=== PATIENT | male | born 1955 | race Two or more races ===

== ENCOUNTER 2019-12-14 07:16 | Inpatient (IN) | payer MEDICAID ==
[~2019-12-14] VITALS: Ht 170.2 cm; Wt 74.3 kg
[~2019-12-14 07:16] MED LIST: ALPR0.5T PO; BACITRACIN INJ 50000 UNIT VIAL ONE; BUPIVACAINE 0.25% INJ 50ML VIAL ONE; LIDOCAINE W/ EPINEPHRINE 1 % INJ 30ML ONE; LISI-646 PO; METO-158 PO; TAMS0.4C36 PO
[2019-12-14] MEDS ORDERED: HEPARIN SODIUM (PORCINE) 5000 UNITS/ML 1ML VIAL ONE (07:52)
[2019-12-14] MEDS: hydrALAZINE HCL 20 MG/ML VL ONE ×2 (08:26→08:30)
[2019-12-14] MEDS ORDERED: MORPHINE SULF INJ 2 MG/ML SYRINGE 1ML IV PRN (10:00)
[2019-12-14] MEDS ORDERED: NITROGLYCERIN 0.4 MG SL TAB SL PRN (10:00)
[2019-12-14] MEDS ORDERED: amLODIPine BESYLATE 5 MG TAB PO ONE (13:45)
[2019-12-14] MEDS ORDERED: ALPRAZolam 0.5 MG TAB PO PRN (13:45)
[2019-12-14] MEDS ORDERED: hydrALAZINE HCL 20 MG/ML VL IV PRN (13:45)
[2019-12-14] MEDS ORDERED: ACETAMINOPHEN 325 MG TAB PO PRN ×2 (13:45→15:30)
[2019-12-14 13:57] LABS: Basophils # (auto) 0 10 ^3/uL (0-0.2); Basophils % (auto) 0.7 % (0.0-2.0); Eosinophils # (auto) 0.1 10 ^3/uL (0-0.8); Eosinophils % (auto) 2.1 % (0.0-7.0); Hematocrit 45.8 % (41.0-53.0); Hemoglobin 15.1 g/dL (13.5-17.5); Lymphocytes # (auto) 1.6 10 ^3/uL (0.4-5.4); Lymphocytes % (auto) 26.3 % (10.0-50.0); Mean Corpuscular Hemoglobin 29.9 pg (28.0-32.0); Mean Corpuscular Volume 90.6 fL (80.0-100.0); Monocytes # (auto) 0.4 10 ^3/uL (0-1.3); Neutrophils # (auto) 3.8 10 ^3/uL (1.6-8.6); Neutrophils % (auto) 63.9 % (37.0-80.0); Nucleated Red Blood Cells % 0.2 %; Platelet Count (auto) 152 10^3/uL (140-450); Red Blood Cells 5.05 10^6/uL (4.5-5.90); Red Cell Distribution Width 12.8 % (11.8-14.3); White Blood Cell 5.9 10^3/uL (4.4-10.8)
[2019-12-14] MEDS: hydrALAZINE HCL 25 MG TAB PO SCH ×2 (14:18→23:55)
[2019-12-14 14:25] LABS: BUN/Creatinine Ratio 16.3; Calcium 9.4 mg/dL (8.5-10.1)
[2019-12-14] MEDS ORDERED: HYDROcodone-ACET 5/325MG TAB PO PRN (15:30)
[2019-12-14] MEDS ORDERED: PROMETHAZINE HCL 25 MG/ML 1ML IV PRN (15:30)
--- NOTE | 2019-12-14 16:40 | NUR ---
Telemetry admit from PACU LORETTA NAQVI admitted to Telemetry unit after SBAR received. Patient oriented to kassi PRITCHETT RN, unit, room, bed, and unit policies regarding patient care and visiting hours. Patient now on continuous telemetry monitoring, tele box #75 and telemetry reading on arrival to unit is SINUS RHYTHM 62BPM. Patient weighed by bedscale and encouraged to call if they need something. All questions and concerns addressed, patient verbalized understanding.
[2019-12-14 16:53] VITALS: BP 153/96
[2019-12-14 17:00] VITALS: BP 153/96
[2019-12-14] MEDS ORDERED: TAMSULOSIN HYDROCHLORIDE 0.4 MG CAP PO SCH (18:00)
--- NOTE | 2019-12-14 19:30 | NUR ---
RECEIVED PATIENT FROM DAY SHIFT RN. PATIENT RESTING IN BED. NO S/S OF DISTRESS NOTED. DENIED PAIN FOR NOW. REINFORCED NPO AFTER MIDNIGHT FOR POSSIBLE PROCEDURE TOMORROW PER MD COMMUNICATION ORDER. POC INSTRUCTED AND ENCOURAGED PATIENT TO CALL FOR FLASH DEVELOPER IF NEEDED. BED IN LOWEST POSITION WITH SIDE RAILS UP X 2. CALL PICHARDO WITHIN REACH. ALARM ON. CONTINUE TO MONITOR FOR CHANGES Q1H AND PRN.
[2019-12-14] MEDS: METOPROLOL TARTRATE 25 MG TAB PO SCH (21:18)
--- NOTE | 2019-12-14 21:29 | NUR ---
PATIENT C/O HEADACHE @ 01/16 AND REQUESTED TYLENOL, BP 155/99, MEDICATED PATIENT FOR HEADACHE AND BP ORDERED. CONTINUE TO MONITOR.
[2019-12-14 22:00] VITALS: BP 155/99
[2019-12-14] MEDS ORDERED: METOPROLOL TARTRATE 50 MG TAB PO SCH (22:00)
--- NOTE | 2019-12-14 22:25 | NUR ---
REASSESSED HEADACHE 0/10, BP 129/83. CONTINUE TO MONITOR.
--- NOTE | 2019-12-15 00:30 | NUR ---
NPO FROM NOW. WATER AND FOOD REMOVED FROM BEDSIDE. CONTINUE CARE.
--- NOTE | 2019-12-15 03:02 | NUR ---
PATIENT SLEEPING. NO S/S OF DISTRESS NOTED. CONTINUE CARE.
[2019-12-15 05:00] VITALS: BP 136/91
[2019-12-15] MEDS: hydrALAZINE HCL 25 MG TAB PO SCH ×2 (05:54→11:45)
--- NOTE | 2019-12-15 06:13 | NUR ---
PATIENT RESTING IN BED. NO S/S OF DISTRESS NOTED. REINFORCED NPO FOR NOW. CONTINUE CARE.
--- NOTE | 2019-12-15 07:25 | NUR ---
OPENING SHIFT NOTE ASSUMED CARE OF PATIENT FROM BAREBACK RIDER RN RADHIKA. PATIENT IS AWAKE, ALERT, AND ORIENTED X4. PATIENT HAS NO S/S OF DISTRESS/SOB OR PAIN. INSTRUCTED PATIENT ON POC, PATIENT VERBALIZED UNDERSTANDING. BED IS IN LOWEST POSITION WITH SIDE RAILS RAISED X2, BED WHEELS LOCKED, AND CALL LIGHT IS WITHIN REACH. WILL CONTINUE TO MONITOR.
[2019-12-15 07:39] LABS: Basophils # (auto) 0 10 ^3/uL (0-0.2); Basophils % (auto) 0.4 % (0.0-2.0); Eosinophils # (auto) 0.1 10 ^3/uL (0-0.8); Hematocrit 46.9 % (41.0-53.0); Hemoglobin 15.8 g/dL (13.5-17.5); Lymphocytes # (auto) 1.2 10 ^3/uL (0.4-5.4); Lymphocytes % (auto) 21.4 % (10.0-50.0); Mean Corpuscular Hemoglobin 30.3 pg (28.0-32.0); Mean Corpuscular Hgb Conc. 33.7 g/dL (32.0-36.0); Mean Corpuscular Volume 89.9 fL (80.0-100.0); Monocytes # (auto) 0.4 10 ^3/uL (0-1.3); Monocytes % (auto) 6.6 % (0.0-12.0); Neutrophils % (auto) 70.6 % (37.0-80.0); Nucleated Red Blood Cells % 0.2 %; Platelet Count (auto) 135 10^3/uL (140-450); Red Blood Cells 5.22 10^6/uL (4.5-5.90); Red Cell Distribution Width 12.8 % (11.8-14.3); White Blood Cell 5.7 10^3/uL (4.4-10.8)
[2019-12-15 07:59] LABS: Potassium 3.7 mmol/L (3.5-5.1)
[2019-12-15 08:13] LABS: Bilirubin, Total 0.5 mg/dL (0.2-1.0); Calcium 9.3 mg/dL (8.5-10.1); Total Protein 7.8 g/dL (6.4-8.2)
[2019-12-15] MEDS ORDERED: PANTOPRAZOLE 40 MG TAB PO SCH (10:00)
[2019-12-15] MEDS ORDERED: amLODIPine BESYLATE 5 MG TAB PO SCH (10:00)
[2019-12-15] MEDS ORDERED: LISINOPRIL 20 MG TAB PO SCH (10:00)
[2019-12-15] MEDS: METOPROLOL TARTRATE 25 MG TAB PO SCH (10:06)
--- NOTE | 2019-12-15 10:52 | NUR ---
SPOKE WITH PRE-OP RN RAYMUNDO. PER RAYMUNDO, PATIENT IS NOT ON SCHEDULE FOR SURGERY. LEFT MESSAGE WITH DR. ENRIQUE'S SERVICES. AWAITING CALL BACK.
--- NOTE | 2019-12-15 12:22 | NUR ---
SPOKE WITH DR. WHITE. PER , HE IS NOT GOING TO DO SURGERY DUE TO HYPERTENSION AND HE HAS CLEARED PATIENT TO BE DISCHARGED AND HE WILL DO THE ELECTIVE SURGERY OUTPATIENT.
--- NOTE | 2019-12-15 12:27 | NUR ---
FOOD TRAY GIVEN TO PATIENT.
[2019-12-15] MEDS ORDERED: hydrALAZINE HCL 25 MG TAB PO ONE (13:00)
--- NOTE | 2019-12-15 13:00 | NUR ---
SPOKE WITH DR. ENRIQUE AND INFORMED MD PATIENT IS CLEARED FOR DISCHARGE BY DR. CINDY MD IS AWARE AND ORDERED HYDRALAZINE TO BE GIVEN TO PATIENT BEFORE DISCHARGE. WILL FOLLOW THROUGH WITH ORDERS.
[2019-12-15] MEDS ORDERED: AML5T PO (13:08)
[2019-12-15] MEDS ORDERED: HYDR-2691 PO (13:08)
[2019-12-15] MEDS ORDERED: MET25T PO (13:08)
[2019-12-15 14:16] VITALS: BP 140/89
--- NOTE | 2019-12-15 15:07 | NUR ---
Discharge instructions given as ordered. Encourage to follow up with PMD as instructed. All questions and concerns addressed. Patient verbalized understanding. Medication reconciliation form completed and copy given to patient. IV removed with catheter intact, pressure dressing applied. Telemetry unit returned to ICU. Patient ambulated to [facility] with all personal belongings, accompanied by staff. No distress noted at time of departure.
[2019-12-15] MEDS ORDERED: hydrALAZINE HCL 25 MG TAB PO SCH (18:00)
== END 2019-12-15 15:00 | disposition home or self-care (01) | DRG 199 ==
LOC: SUR 07:16 → TELE-WESTW 16:49
PROVIDERS: ADMIT Specialist; ATTEND Surgery
DX: I16.9 Hypertensive crisis, unspecified (principal); K40.90 Unilateral inguinal hernia, without obstruction or gangrene, not specified as recurrent; N40.0 Benign prostatic hyperplasia without lower urinary tract symptoms; F41.9 Anxiety disorder, unspecified; Z79.899 Other long term (current) drug therapy; Z83.3 Family history of diabetes mellitus; Z82.49 Family history of ischemic heart disease and other diseases of the circulatory system; Z82.5 Family history of asthma and other chronic lower respiratory diseases; Z11.59 Encounter for screening for other viral diseases; R00.1 Bradycardia, unspecified
CPT/HCPCS: 36415; 80048; 80053; 85025; G0378; J3490

== ENCOUNTER 2024-06-20 13:50 | Inpatient (IN) | payer OTHER, MEDICAID ==
[~2024-06-20] VITALS: Ht 170.2 cm; Wt 65.5 kg
[~2024-06-20 13:50] MED LIST changes: +AML5T PO; -BACITRACIN INJ 50000 UNIT VIAL ONE; -BUPIVACAINE 0.25% INJ 50ML VIAL ONE; +HYDR25TA87 PO; -LIDOCAINE W/ EPINEPHRINE 1 % INJ 30ML ONE; -LISI-646 PO; +LISI20TA56 PO; +MET25T PO; -METO-158 PO; -TAMS0.4C36 PO; +TAMS0.4C39 PO
--- NOTE | 2024-06-20 14:02 | ED.PDOC ---
History of Present Illness HPI Comments 69 y.o male with PMHx of HTN and preDM presents to the ED for a chief complaint of dizziness associated with generalized malaise and weakness that started today. Patient was BIB spouse who states patient has a history of ETOH abuse, drinks Tequila everyday and consumed a whole bottle yesterday. Patient's last drink was today around 0700. Spouse reports patient hides and drinks hard liquor, unsure how much per day. Patient denies any nausea, vomiting, diarrhea, chest pain, or SOB. Time Seen by MD: 13:56 Primary Care Provider: CINDY Reviewed Notes: Nurses Notes, Medications, Allergies Allergies: Coded Allergies: NO KNOWN ALLERGIES (Unverified , 12/07/19) Home Meds Active Scripts Chlordiazepoxide Hcl (Ni-1) (I (Librium) 10 Mg Cap, 10 MG PO BID for 5 Days, #10 CAP Prov:FAN SHERWOOD MD 06/20/24 Ondansetron Odt 4MG Tab (ZOFRAN PO) 4 Mg Tb, 4 MG PO Q8HP PRN for 5 Days, #15 TAB ODT TAB-DISSOLVE IN MOUTH, THEN SWALLOW Prov:FAN SHERWOOD MD 06/20/24 Hydralazine HCl (Hydralazine HCl) 25 Mg Tab, 50 MG PO Q8H, #180 TAB Prov:RON ENRIQUE MD 12/15/19 Metoprolol Tartrate (Lopressor) 25 Mg Tb, 25 MG PO BID, #60 TAB Prov:RON ENRIQUE MD 12/15/19 Amlodipine Besylate (NORVASC TABLET) 5 Mg Tb, 10 MG PO DAILY, #30 TAB Prov:RON ENRIQUE MD 12/15/19 Reported Medications Alprazolam (Xanax) 0.5 Mg Tb, 1 TAB PO DAILY PRN for ANXIETY, #30 TAB 12/07/19 Tamsulosin Hcl (Tamsulosin Hcl) 0.4 Mg Cap, 0.4 MG PO QPM for 30 Days, MG 12/07/19 Lisinopril (Lisinopril) 20 Mg Tab, 20 MG PO DAILY for 30 Days, MG 12/07/19 Information Source: Patient, Spouse Mode of Arrival: Wheelchair Severity: Moderate Timing: Hours Duration: Since onset Past Medical History PAST MEDICAL HISTORY: DM (PRE ), High Lipids, HTN Surgical History: Denies all surgeries Family History Family History: Family hx of heart siva, Family hx of HTN Social History Smoker: Non-Smoker Alcohol: Heavy Drugs: Denies Drug Use Lives In: Home Constitutional: reports: malaise; denies: chills, diaphoresis, fatigue, fever, sweats, weakness, others EENTM: denies: blurred vision, double vision, ear bleeding, ear discharge, ear drainage, ear pain, ear ringing, eye pain, eye redness, hearing loss, mouth pain, mouth swelling, nasal discharge, nose bleeding, nose congestion, nose pain, photophobia, tearing, throat pain, throat swelling, voice changes, others Respiratory: denies: cough, hemoptysis, orthopnea, SOB at rest, shortness of breath, SOB with excertion, stridor, wheezing, others Cardiovascular: denies: chest pain, dizzy spells, diaphoresis, Dyspnea on exertion, edema, irregular heart beat, left arm pain, lightheadedness, palpitations, PND, syncope, others Gastrointestinal: denies: abdomen distended, abdominal pain, blood streaked bowels, constipated, diarrhea, dysphagia, difficulty swallowing, hematemesis, melena, nausea, poor appetite, poor fluid intake, rectal bleeding, rectal pain, vomiting, others Genitourinary: denies: burning, dysuria, flank pain, frequency, hematuria, incontinence, penile discharge, penile sore, pain, testicle pain, testicle swelling, urgency, others Neurological: reports: dizziness; denies: fainting, headache, left sided numbness, left sided weakness, numbness, paresthesia, pre-existing deficit, right sided numbness, right sided weakness, seizure, speech problems, tingling, tremors, weakness, others Musculoskeletal: denies: back pain, gout, joint pain, joint swelling, muscle pain, muscle stiffness, neck pain, others Integumetry: denies: bruises, change in color, change in hair/nails, dryness, laceration, lesions, lumps, rash, wounds, others Allergic/Immunocompromised: denies: Difficulty Healing, Frequent Infections, Hives, Itching, others Hematologic/Lymphatic: denies: anemia, blood clots, easy bleeding, easy bruising, swollen glands, others Endocrine: denies: excessive hunger, excessive sweating, excessive thirst, excessive urination, flushing, intolerance to cold, intolerance to heat, unexplained weight gain, unexplained weight loss, others Psychiatric: denies: anxiety, bipolar disorder, depression, hopeless, panic disorder, schizophrenia, sleepless, suicidal, others All Other Systems: Reviewed and Negative Physical Exam General Appearance: Moderate Distress HEENT: Normal ENT Inspection, Pharynx Normal, TMs Normal Neck: Full Range of Motion, Non-Tender, Normal, Normal Inspection Respiratory: Chest Non-Tender, Lungs Clear, No Accessory Muscle Use, No Respiratory Distress, Normal Breath Sounds Cardiovascular: No Edema, No JVD, No Murmur, No Gallop, Normal Peripheral Pulses, Regular Rate/Rhythm Breast Exam: Deferred Gastrointestinal: Epigastric, No Organomegaly, No Pulsatile Mass, Normal Bowel Sounds, Soft, Tenderness Genitalia: Deferred Pelvic: Deferred Rectal: Deferred Extremities: No calf tenderness, Normal capillary refill, Normal inspection, Normal range of motion, Non-tender, No pedal edema Musculoskeletal : Apperance: Normal Neurologic: Alert, childcare teacher II-XII nml as Tested, Motor Weakness, Normal Affect, Normal Mood, No Sensory Deficits Cerebellar Function: Tremor Reflexes: Normal Skin: Dry, Normal Color, Warm Lymphatic: No Adenopathy Was a procedure done? Was a procedure done?: No EKG EKG : Pulse Rate (adult): 129 Cardiac Rhythm: ST Differential Dx Considerations may include: ETOH abuse X-Ray, Labs, Meds, VS Vital Signs Date Time Temp Pulse Resp B/P (MAP) Pulse Ox O2 Delivery O2 Flow Rate FiO2 06/20/24 17:57 115 22 180/125 (143) 95 06/20/24 14:26 120 16 97 Room Air* 0 21 06/20/24 14:25 99.5 120 18 148/109 (122) 97 99.5 06/20/24 14:06 99.6 130 19 151/107 (122) 96 06/20/24 14:02 129 06/20/24 14:01 129 Lab Test 06/20/24 14:08 Range/Units White Blood Count 9.3 4.4-10.8 10^3/uL Red Blood Count 5.10 4.5-5.90 10^6/uL Hemoglobin 16.2 13.5-17.5 g/dL Hematocrit 48.2 41.0-53.0 % Mean Corpuscular Volume 94.4 80.0-100.0 fL Mean Corpuscular Hemoglobin 31.8 28.0-32.0 pg Mean Corpuscular Hemoglobin Concent 33.7 32.0-36.0 g/dL Red Cell Distribution Width 14.1 11.8-14.3 % Platelet Count 183 140-450 10^3/uL Mean Platelet Volume 7.6 6.9-10.8 fL Neutrophils (%) (Auto) 63.6 37.0-80.0 % Lymphocytes (%) (Auto) 30.9 10.0-50.0 % Monocytes (%) (Auto) 5.0 0.0-12.0 % Eosinophils (%) (Auto) 0.0 0.0-7.0 % Basophils (%) (Auto) 0.5 0.0-2.0 % Neutrophils # (Auto) 5.9 1.6-8.6 10 ^3/uL Lymphocytes # (Auto) 2.9 0.4-5.4 10 ^3/uL Monocytes # (Auto) 0.5 0-1.3 10 ^3/uL Eosinophils # (Auto) 0 0-0.8 10 ^3/uL Basophils # (Auto) 0 0-0.2 10 ^3/uL Nucleated Red Blood Cells 0.1 % Sodium Level 139 136-145 mmol/L Potassium Level 3.8 3.5-5.1 mmol/L Chloride Level 101 98-107 mmol/L Carbon Dioxide Level 21 20-31 mmol/L Anion Gap 17 H 5-15 Blood Urea Nitrogen 17 9-23 mg/dL Creatinine 1.13 0.700-1.30 mg/dL Glomerular Filtration Rate Calc 70 >90 mL/min BUN/Creatinine Ratio 15.0 10.0-20.0 Serum Glucose 126 H 74-106 mg/dL Calcium Level 10.5 H 8.7-10.4 mg/dL Total Bilirubin 0.6 0.2-1.0 mg/dL Aspartate Amino Transferase (AST) 32 13-40 U/L Alanine Aminotransferase (ALT) 24 7-40 U/L Alkaline Phosphatase 44 L 46-116 U/L Total Protein 7.8 5.7-8.2 g/dL Albumin 5.1 H 3.2-4.8 g/dL Lipase 71 H 12-53 U/L Plasma/Serum Blood Alcohol 172.6 H <10 mg/dL Current Medications Medications (Trade) Dose Ordered Sig/Felton Route Start Time Stop Time Status Last Admin Sodium Chloride 1,000 ml @ 1,000 mls/hr Q1H ONCE IV 06/20/24 14:00 06/20/24 14:59 DC 06/20/24 14:12 Lorazepam (Ativan Inj) 1 mg ONCE ONCE IV 06/20/24 14:00 06/20/24 14:01 DC 06/20/24 14:22 Lorazepam (Ativan Inj) 1 mg ONCE ONCE IV 06/20/24 18:15 06/20/24 18:16 DC 06/20/24 18:09 IV Hep-Lock was established The patient was given a 1 L bolus of normal saline The patient was given Ativan 1 mg IV push The patient was given another mg of Ativan IV push The patient had an alcohol level of 172.6 The lipase is elevated at 71 indicating some acute pancreatitis At this time, the patient's CBC is within normal limits The patient was still having some abdominal pain so was being admitted to the hospitalist We did advise the patient and he is in agreement with the management. Images Reviewed?: Images reviewed and evaluated by me Time of 1ST Reevaluation: 13:58 Reevaluation 1ST: Unchanged Patient Education/Counseling: Diagnosis, Treatment, Prognosis Family Education/Counseling: No Family Present Departure 1 Departure Time of Disposition: 18:49 Impression: Primary Impression: Toxic encephalopathy Qualified Codes: G92.9 - Unspecified toxic encephalopathy Additional Impressions: Alcohol abuse Acute pancreatitis Qualified Codes: K85.20 - Alcohol induced acute pancreatitis without nec rosis or infection Disposition: ADMITTED INPATIENT Admit to: Tele Condition: Fair e-Prescriptions Chlordiazepoxide Hcl (Ni-1) (I (Librium) 10 Mg Cap 10 MG PO BID for 5 Days, #10 CAP Prov: FAN SHERWOOD MD 06/20/24 Ondansetron Odt 4MG Tab (ZOFRAN PO) 4 Mg Tb 4 MG PO Q8HP PRN for 5 Days, #15 TAB ODT TAB-DISSOLVE IN MOUTH, THEN SWALLOW Prov: FAN SHERWOOD MD 06/20/24 Critical Care Note Critical Care Time?: Yes (45 min-critical care time only) Stability Stability form required: Yes Unstable for transfer: ED Physician Assesment (Clinical assesment) Heart Score Heart Score: Heart Score Response (Comments) Value History N/A 0 EKG N/A 0 Age N/A 0 Risk Factors N/A 0 Troponin N/A 0 Total 0 I personally scribed for FAN SHERWOOD MD ([email or web address]) on 06/20/24 at 14:02. Electronically submitted by Gina Ferraro ([facility]). FAN SHERWOOD MD Jun 20, 2024 14:02
[2024-06-20] MEDS: SODIUM CHLORIDE 0.9% 1,000 ML IV ONE (14:12)
[2024-06-20] MEDS: LORazepam 2MG/ML-1ML VIAL IV ONE ×2 (14:22→18:09)
[2024-06-20 14:26] VITALS: PULSE 120; RESP 16; O2SAT 97
[2024-06-20 14:28] LABS: Basophils # (auto) 0 10 ^3/uL (0-0.2); Basophils % (auto) 0.5 % (0.0-2.0); Eosinophils # (auto) 0 10 ^3/uL (0-0.8); Hematocrit 48.2 % (41.0-53.0); Hemoglobin 16.2 g/dL (13.5-17.5); Lymphocytes # (auto) 2.9 10 ^3/uL (0.4-5.4); Lymphocytes % (auto) 30.9 % (10.0-50.0); Mean Corpuscular Hemoglobin 31.8 pg (28.0-32.0); Mean Corpuscular Hgb Conc. 33.7 g/dL (32.0-36.0); Mean Corpuscular Volume 94.4 fL (80.0-100.0); Monocytes # (auto) 0.5 10 ^3/uL (0-1.3); Neutrophils # (auto) 5.9 10 ^3/uL (1.6-8.6); Neutrophils % (auto) 63.6 % (37.0-80.0); Nucleated Red Blood Cells % 0.1 %; Platelet Count (auto) 183 10^3/uL (140-450); Red Cell Distribution Width 14.1 % (11.8-14.3); White Blood Cell 9.3 10^3/uL (4.4-10.8)
[2024-06-20 14:59] LABS: Alanine Aminotransferase 24 U/L (7-40); Anion Gap 17 (5-15); Aspartate Aminotransferase 32 U/L (13-40); Bilirubin, Total 0.6 mg/dL (0.2-1.0); Blood Urea Nitrogen 17 mg/dL (9-23); Carbon Dioxide 21 mmol/L (20-31); Chloride 101 mmol/L (98-107); Potassium 3.8 mmol/L (3.5-5.1); Sodium 139 mmol/L (136-145); Total Protein 7.8 g/dL (5.7-8.2)
[2024-06-20 15:43] LABS: Albumin 5.1 g/dL (3.2-4.8); Alkaline Phosphatase 44 U/L (46-116); Calcium 10.5 mg/dL (8.7-10.4); Glucose 126 mg/dL (74-106)
[2024-06-20 15:44] LABS: Lipase 71 U/L (12-53)
--- NOTE | 2024-06-20 17:04 | ECG ---
[facility] Test Date: 2024-06-20 Test Time: 13:59:23 Pat Name: LORETTA NAQVI Department: ER Room: 0272T Gender: M Hull Inspector: ANT : 1955 Requested By: FAN SHERWOOD Order Number: [id number] Reading MD: Yan Montoya Measurements Intervals [place] Rate: 129 P: 50 ID: [id number] QRS: 75 QRSD: 91 T: -23 QT: 309 QTc: 453 Interpretive Statements Sinus tachycardia Ventricular premature complex Aberrant complex Borderline T abnormalities, inferior leads Electronically Signed On 06-27-2024 14:55:04 PST by Yan Montoya Please click the below link to view image of tracing.
[2024-06-20] MEDS ORDERED: ZOFR4T PO (19:28)
[2024-06-20] MEDS ORDERED: CHL10C PO (19:28)
--- NOTE | 2024-06-20 21:04 | DVH ---
Exam: CT CT AB PEL WO CON-NO ORAL OR IV History: pain Comparison Study: None available at time of dictation. TECHNIQUE: Multidetector CT of the abdomen was performed from lung bases to pubic symphysis. Imaging was performed without IV contrast. Axial, coronal and sagittal multiplanar reformats were obtained fr om the axial data set by the technologist. Radiation Dose Information: CT Dose: CTDI volume is 7.86 mGy. Dose-length product is 41.03 mGy*cm FINDINGS: Evaluation of solid organs is limited due to lack of intravenous contrast use. Findings: Lung Bases: No acute or significant lung base finding. Normal heart size. No pleural or pericardial effusion. Scattered coronary artery calcification Liver: The liver is normal in size. No focal lesions. Gallbladder and Biliary Tree: Unremarkable Spleen: Unremarkable Pancreas: The pancreas is grossly normal in appearance. Adrenal Glands: Unremarkable Kidneys: Kidneys are grossly normal without calculi or hydronephrosis. Bladder: Multiple round calcifications are noted in the dependent portion of the bladder. Bowel: The stomach is grossly normal in appearance. Small bowel and colon are normal in caliber and d istribution. The appendix is not visualized; however, no secondary findings of acute appendicitis id entified. Ascites: Absent Lymphadenopathy: No mesenteric, retroperitoneal or periportal lymphadenopathy. Abdominal Wall and Mesentery: Unremarkable. Vasculature: The visualized abdominal aorta is normal in size and caliber. Evaluation of abdominal a nd pelvic vessels is limited due to lack of intravenous contrast. Pelvic Organs: Left side hydrocele is visible Musculoskeletal: No aggressive focal bony lesions, acute fractures or dislocation. Soft tissues: Unremarkable IMPRESSION: 1. 4- 5 bladder calculi visualized. 2. Scattered coronary artery calcifications small punctate calcification in the left renal pelvis may be vascular. There is no hydronephrosis on left. Radiation optimization: All CT scans at this facility use at least one of these dose optimization te chniques: automated exposure control mA and/or kV adjustment per patient size (includes targeted exa ms where dose is matched to clinical indication) or iterative reconstruction.
[2024-06-20] MEDS: PANTOPRAZOLE 40 MG/10 ML VIAL INJ IV ONE (21:28)
[2024-06-20] MEDS: METOPROLOL TARTRATE 50 MG TAB PO ONE (21:47)
[2024-06-20] MEDS: LISINOPRIL 20 MG TAB PO ONE (21:48)
[2024-06-21] VITALS (13 sets, daily range): BP systolic 135–197; BP diastolic 80–110; PULSE 70–95; RESP 16–19; TEMP 97.4–98.6; O2SAT 94–98
[2024-06-21] MEDS ORDERED: ONDANSETRON HCL 4 MG/2 ML VIAL IV PRN (00:30)
[2024-06-21] MEDS ORDERED: ACETAMINOPHEN 325 MG TAB PO PRN (00:30)
[2024-06-21] MEDS ORDERED: NITROGLYCERIN 0.4 MG SL TAB SL PRN (00:30)
[2024-06-21] MEDS ORDERED: MORPHINE SULFATE INJ 2 MG/ml SYRG IV PRN ×2 (00:30)
[2024-06-21] MEDS ORDERED: LORazepam 2MG/ML-1ML VIAL IV PRN (00:30)
[2024-06-21] MEDS ORDERED: DOCUSATE SOD 100 MG CAP PO PRN (00:30)
[2024-06-21] MEDS: LISINOPRIL 20 MG TAB PO ONE (00:58)
[2024-06-21] MEDS: chlordiazePOXIDE HCL 25 MG CAP PO SCH (00:59)
[2024-06-21] MEDS: SODIUM CHLORIDE 0.9% 1,000 ML IV SCH (01:09)
[2024-06-21] MEDS: cloNIDine HCL 0.1 MG TAB PO PRN (01:40)
[2024-06-21] MEDS: hydrALAZINE HCL 20 MG/ML VL IV PRN (02:52)
[2024-06-21] MEDS ORDERED: CHOL20007 PO (04:25)
[2024-06-21] MEDS ORDERED: MET50T PO (04:25)
[2024-06-21] MEDS ORDERED: LISI40TA16 PO (04:25)
--- NOTE | 2024-06-21 04:32 | DVHHP2 ---
ALBARO DENNIS BENZENE WASHER OPERATOR 06/21/24 0432: History of Present Illness Reason for Visit: Generalized weakness, EToH History of Present Illness 69-year-old male with past medical history of alcohol abuse, hypertension presents with complaints of generalized weakness. Patient with broaden by his With complaints of alcohol abuse.Patient's last drink was June 20, 2024 Around 7 AM.Patient endorses drinking Tequila on a daily basis. Patient also noted to have uncontrolled hypertension. There are no complaints of fevers, chills, Chest pain, dizziness, Shortness of breath. Cardiovascular: HTN Psych: Addictions Smoke: No ALCOHOL: heavy Drugs: None Lives: with Family Review of Systems Constitutional: Yes: Weakness; No: Fever, Chills, Sweats, Malaise, Other Eyes: No: Pain, Vision change, Conjunctivae inflammation, Eyelid inflammation, Other, Redness ENT: No: Ear pain, Ear discharge, Nose pain, Nose discharge, Nose congestion, Mouth pain, Mouth swelling, Throat pain, Throat swelling, Other Respiratory: No: Cough, Dry, Shortness of breath, SOB with excertion, Wheezing, Hemoptysis, Pleuritic Pain, Sputum, Wheezing, Other Cardiovascular: No: Chest Pain, Palpitations, Orthopnea, Paroxysmal Noc. Dyspnea, Edema, Lt Headedness, Other Gastrointestinal: No: Nausea, Vomiting, Abdominal Pain, Diarrhea, Constipation, Melena, Hematochezia, Other Genitourinary: No Dysuria, No Frequency, No Incontinence, No Hematuria, No Retention, No Other Musculoskeletal: No: other, neck pain, shoulder pain, arm pain, back pain, hand pain, leg pain, foot pain Skin: No: Rash, Lesions, Jaundice, Bruising, Other Neurological: No: Weakness, Numbness, Incoordination, Change in speech, Confusion, Seizures, Other Allergies: Coded Allergies: NO KNOWN ALLERGIES (Unverified , 12/07/19) Medications Current Medications Medications Dose Ordered Sig/Felton Route Start Time Stop Time Status Last Admin Dose Admin Sodium Chloride 1,000 ml @ 100 mls/hr Q10H IV 06/21/24 00:30 06/21/24 01:09 100 MLS/HR Docusate Sodium 100 mg BIDPRN PRN PO 06/21/24 00:30 Acetaminophen 650 mg Q6HP PRN PO 06/21/24 00:30 Ondansetron HCl 4 mg Q4HP PRN IV 06/21/24 00:30 Enoxaparin Sodium 40 mg DAILY SC 06/21/24 10:00 Nitroglycerin 0.4 mg Q5MINP PRN SL 06/21/24 00:30 Morphine Sulfate 2 mg Q30M PRN IV 06/21/24 00:30 Metoprolol Tartrate 50 mg BID PO 06/21/24 10:00 Clonidine HCl 0.1 mg Q8HP PRN PO 06/21/24 00:30 06/21/24 01:40 0.1 MG Hydralazine HCl 10 mg Q4HP PRN IV 06/21/24 00:30 06/21/24 02:52 10 MG Folic Acid 1 mg/ Magnesium Sulfate 8 meq/ Multivitamins 10 ml/Thiamine HCl 100 mg/Sodium Chloride 1,013.2 ml @ 126.247 mls/hr DAILY@1800 INJ 06/21/24 18:00 Gabapentin 300 mg TID PO 06/21/24 06:00 Chlordiazepoxide HCl 50 mg Q8H PO 06/21/24 00:30 06/21/24 16:31 06/21/24 00:59 50 MG Chlordiazepoxide HCl 50 mg Q12HR PO 06/22/24 10:00 06/22/24 22:01 Chlordiazepoxide HCl 25 mg Q12HR PO 06/23/24 10:00 06/23/24 22:01 Chlordiazepoxide HCl 25 mg QAM PO 06/24/24 07:00 06/24/24 07:01 Lorazepam 0.5 mg Q4HPRN PRN IV 06/21/24 00:30 Pantoprazole Sodium 40 mg DAILY IV 06/21/24 10:00 Morphine Sulfate 2 mg Q4HPRN PRN IV 06/21/24 00:30 Tamsulosin HCl 0.4 mg DAILY PO 06/21/24 10:00 Exam Vital Signs Vital Signs Date Time Temp Pulse Resp B/P (MAP) Pulse Ox O2 Delivery O2 Flow Rate FiO2 06/21/24 03:34 70 19 137/87 (104) 06/21/24 02:40 98.2 95 98.2 06/21/24 00:21 Room Air* 0 21 General Appearance: Alert, Oriented X3, Cooperative, moderate distress HEENT: Atraumatic, PERRLA Respiratory: Clear to auscultation, Normal air movement Cardiovascular: Regular rate, Normal S1, Normal S2 Abdominal: Normal bowel sounds, Soft, No tenderness Extremities: No clubbing, No cyanosis, No edema Skin: No rashes, No breakdown Neuro: Normal speech, Strength at 5/5 X4 ext Psych/Mental Status: Mental status NL, Mood NL Labs/Xrays Labs Test 06/20/24 14:08 Range/Units White Blood Count 9.3 4.4-10.8 10^3/uL Red Blood Count 5.10 4.5-5.90 10^6/uL Hemoglobin 16.2 13.5-17.5 g/dL Hematocrit 48.2 41.0-53.0 % Mean Corpuscular Volume 94.4 80.0-100.0 fL Mean Corpuscular Hemoglobin 31.8 28.0-32.0 pg Mean Corpuscular Hemoglobin Concent 33.7 32.0-36.0 g/dL Red Cell Distribution Width 14.1 11.8-14.3 % Platelet Count 183 140-450 10^3/uL Mean Platelet Volume 7.6 6.9-10.8 fL Neutrophils (%) (Auto) 63.6 37.0-80.0 % Lymphocytes (%) (Auto) 30.9 10.0-50.0 % Monocytes (%) (Auto) 5.0 0.0-12.0 % Eosinophils (%) (Auto) 0.0 0.0-7.0 % Basophils (%) (Auto) 0.5 0.0-2.0 % Neutrophils # (Auto) 5.9 1.6-8.6 10 ^3/uL Lymphocytes # (Auto) 2.9 0.4-5.4 10 ^3/uL Monocytes # (Auto) 0.5 0-1.3 10 ^3/uL Eosinophils # (Auto) 0 0-0.8 10 ^3/uL Basophils # (Auto) 0 0-0.2 10 ^3/uL Nucleated Red Blood Cells 0.1 % Sodium Level 139 136-145 mmol/L Potassium Level 3.8 3.5-5.1 mmol/L Chloride Level 101 98-107 mmol/L Carbon Dioxide Level 21 20-31 mmol/L Anion Gap 17 H 5-15 Blood Urea Nitrogen 17 9-23 mg/dL Creatinine 1.13 0.700-1.30 mg/dL Glomerular Filtration Rate Calc 70 >90 mL/min BUN/Creatinine Ratio 15.0 10.0-20.0 Serum Glucose 126 H 74-106 mg/dL Calcium Level 10.5 H 8.7-10.4 mg/dL Total Bilirubin 0.6 0.2-1.0 mg/dL Aspartate Amino Transferase (AST) 32 13-40 U/L Alanine Aminotransferase (ALT) 24 7-40 U/L Alkaline Phosphatase 44 L 46-116 U/L Total Protein 7.8 5.7-8.2 g/dL Albumin 5.1 H 3.2-4.8 g/dL Lipase 71 H 12-53 U/L Plasma/Serum Blood Alcohol 172.6 H <10 mg/dL Assessment/Plan Assessment/Plan Etoh withdrawal Uncontrolled hypertension 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 Banana bag. Librium per withdrawal protocol. Seizure precautions. As needed Ativan for seizures. Continue home medication. As needed anti hypertensive for optimal BP management. GI ppx Protonix / DVT ppx SCD Plan discussed with: Patient My Orders Orders - ALBARO DENNIS NP Procedure Category Date Status Time Communication Order ORDERS 06/20/24 Transmitted 20:41 Admit ADMIT 06/21/24 Transmitted 00:30 Code Status CODE 06/21/24 Transmitted 00:30 Vital Signs MANNIE 06/21/24 In Process 00:30 Review Orders With MANNIE 06/21/24 In Process Adm. 00:30 Encourage Activity As MANNIE 06/21/24 In Process Tolerate 00:30 Consistent DIET 06/21/24 Transmitted Carb(Ccho)Diabetes Breakfast Sodium Chloride 0.9% PHA 06/21/24 In Process 00:30 Oxygen By Face Mask RT 06/21/24 Transmitted 00:30 Docusate Sodium PHA 06/21/24 In Process Capsule (Colace 00:30 Acetaminophen Tablet PHA 06/21/24 In Process (Tylenol Tablet) 00:30 Notify Of Changes MANNIE 06/21/24 In Process From Base 00:30 Advance Directive MANNIE 06/21/24 In Process 00:30 Basic Metabolic Panel LAB 06/21/24 Logged 05:00 Basic Metabolic Panel LAB 06/22/24 Verified 05:00 Basic Metabolic Panel LAB 06/23/24 Verified 05:00 Basic Metabolic Panel LAB 06/24/24 Verified 05:00 Complete Blood Count LAB 06/21/24 Logged 05:00 Complete Blood Count LAB 06/22/24 Verified 05:00 Complete Blood Count LAB 06/23/24 Verified 05:00 Complete Blood Count LAB 06/24/24 Verified 05:00 Complete Blood Count LAB 06/25/24 Verified 05:00 Patient Condition ORDERS 06/21/24 Transmitted 00:30 Allergies MANNIE 06/21/24 In Process 00:30 Ondansetron Hcl PHA 06/21/24 In Process (Zofran) 00:30 Enoxaparin Sodium PHA 06/21/24 In Process (Lovenox) 10:00 Sequential MANNIE 06/21/24 In Process Compression Device Nitroglycerin PHA 06/21/24 In Process Sublingual (Ntrostat 00:30 Morphine Sulfate PHA 06/21/24 In Process Injection 00:30 Stat Ekg For Chest MANNIE 06/21/24 In Process Pain 00:30 Notify Md Of Changes MANNIE 06/21/24 In Process From Base 00:30 Carton Forming Machine Tender For MANNIE 06/21/24 In Process 24 Hours 00:30 Emergency Dysrhythmia MANNIE 06/21/24 In Process Protocol 00:30 Rhythm Strips Once MANNIE 06/21/24 In Process Every Shift 00:30 Oxygen By Nasal RT 06/21/24 Transmitted Cannula 00:30 Metoprolol Tartrate PHA 06/21/24 In Process Tablet (Lopressor Ta 10:00 Clonidine Hcl Tablet PHA 06/21/24 In Process (Catapres Tablet) 00:30 Hydralazine Injection PHA 06/21/24 In Process (Apresoline Inject 00:30 Folic Acid... PHA 06/21/24 In Process 18:00 Gabapentin Capsule PHA 06/21/24 In Process (Neurontin Capsule) 06:00 Chlordiazepoxide Hcl PHA 06/21/24 In Process Capsule (Librium Ca 00:30 Chlordiazepoxide Hcl PHA 06/22/24 In Process Capsule (Librium Ca 10:00 Chlordiazepoxide Hcl PHA 06/23/24 In Process Capsule (Librium Ca 10:00 Chlordiazepoxide Hcl PHA 06/24/24 In Process Capsule (Librium Ca 07:00 Seizure Precautions ED NURSING 06/21/24 Transmitted Lorazepam 2mg/Ml Inj PHA 06/21/24 In Process (Ativan Inj) 00:30 Pantoprazole PHA 06/21/24 In Process (Protonix) 10:00 Morphine Sulfate PHA 06/21/24 In Process Injection 00:30 Tamsulosin PHA 06/21/24 In Process Hydrochloride (Flomax) 10:00 Date of Service: Jun 21, 2024 Billing Provider: DONNA FERRARI MD Common Visit Codes: NOT BILLABLE DONNA FERRARI MD 06/22/24 1728: Review of Systems Allergies: Coded Allergies: NO KNOWN ALLERGIES (Unverified , 12/07/19) Additional Comments Additional Comments Additional Comments Patient chart reviewed and discussed with the nurse practitioner. I agree with the nurse practitioner's evaluation, documentation, assessment and care plan as outlined. ALBARO DENNIS NP Jun 21, 2024 04:32 DONNA FERRARI MD Jun 22, 2024 17:28
[2024-06-21] MEDS: GABAPENTIN 300 MG CAP PO SCH (06:07)
[2024-06-21 07:46] LABS: Basophils # (auto) 0 10 ^3/uL (0-0.2); Basophils % (auto) 0.8 % (0.0-2.0); Eosinophils # (auto) 0 10 ^3/uL (0-0.8); Eosinophils % (auto) 0.7 % (0.0-7.0); Hematocrit 39.8 % (41.0-53.0); Hemoglobin 13.8 g/dL (13.5-17.5); Lymphocytes # (auto) 1.9 10 ^3/uL (0.4-5.4); Lymphocytes % (auto) 33.2 % (10.0-50.0); Mean Corpuscular Hemoglobin 32.5 pg (28.0-32.0); Mean Corpuscular Hgb Conc. 34.7 g/dL (32.0-36.0); Mean Corpuscular Volume 93.7 fL (80.0-100.0); Monocytes # (auto) 0.4 10 ^3/uL (0-1.3); Monocytes % (auto) 7.5 % (0.0-12.0); Neutrophils # (auto) 3.3 10 ^3/uL (1.6-8.6); Neutrophils % (auto) 57.8 % (37.0-80.0); Nucleated Red Blood Cells % 0.1 %; Platelet Count (auto) 124 10^3/uL (140-450); Red Blood Cells 4.25 10^6/uL (4.5-5.90); Red Cell Distribution Width 13.8 % (11.8-14.3); White Blood Cell 5.7 10^3/uL (4.4-10.8)
[2024-06-21 07:51] LABS: Anion Gap 10 (5-15); Carbon Dioxide 23 mmol/L (20-31); Chloride 104 mmol/L (98-107); Potassium 3.2 mmol/L (3.5-5.1); Sodium 137 mmol/L (136-145)
[2024-06-21 07:57] LABS: BUN/Creatinine Ratio 11.3 (10.0-20.0); Blood Urea Nitrogen 12 mg/dL (9-23)
[2024-06-21 08:01] LABS: Glucose 128 mg/dL (74-106)
[2024-06-21] MEDS: PANTOPRAZOLE 40 MG/10 ML VIAL INJ IV SCH (08:58)
[2024-06-21] MEDS: TAMSULOSIN HYDROCHLORIDE 0.4 MG CAP PO SCH (08:58)
[2024-06-21] MEDS: METOPROLOL TARTRATE 50 MG TAB PO SCH (08:59)
[2024-06-21] MEDS: ENOXAPARIN SOD 40 MG/0.4 ML SYRINGE SC SCH (09:00)
[2024-06-21] MEDS: hydrALAZINE HCL 25 MG TAB PO SCH (13:15)
[2024-06-21] MEDS: THIAMINE 100mg/ml INJ (200mg/2ml VIAL) IV ONE (13:52)
[2024-06-21] MEDS: POTASSIUM CHL 20 Meq TABLET PO ONE (15:20)
[2024-06-21] MEDS: FOLIC ACID 1 MG, MAGNESIUM SULF SDV 50% 8 MEQ, MULTIPLE VITAMIN 10 ML, THIAMINE INJ 100... INJ SCH (18:30)
[2024-06-22 01:00] VITALS: BP 154/102; PULSE 76; RESP 17; TEMP 97.8; O2SAT 97
[2024-06-22 05:00] VITALS: BP 155/105; PULSE 71; RESP 16; TEMP 97.6; O2SAT 96
[2024-06-22 06:54] LABS: Basophils # (auto) 0 10 ^3/uL (0-0.2); Basophils % (auto) 0.7 % (0.0-2.0); Eosinophils # (auto) 0.1 10 ^3/uL (0-0.8); Eosinophils % (auto) 2.1 % (0.0-7.0); Hematocrit 44.4 % (41.0-53.0); Hemoglobin 14.9 g/dL (13.5-17.5); Lymphocytes # (auto) 2.1 10 ^3/uL (0.4-5.4); Lymphocytes % (auto) 38.6 % (10.0-50.0); Mean Corpuscular Hemoglobin 32.1 pg (28.0-32.0); Mean Corpuscular Hgb Conc. 33.6 g/dL (32.0-36.0); Mean Corpuscular Volume 95.5 fL (80.0-100.0); Monocytes # (auto) 0.3 10 ^3/uL (0-1.3); Neutrophils # (auto) 2.8 10 ^3/uL (1.6-8.6); Neutrophils % (auto) 52.6 % (37.0-80.0); Nucleated Red Blood Cells % 0.2 %; Platelet Count (auto) 135 10^3/uL (140-450); Red Blood Cells 4.65 10^6/uL (4.5-5.90); White Blood Cell 5.4 10^3/uL (4.4-10.8)
[2024-06-22 07:10] LABS: Anion Gap 8 (5-15); Carbon Dioxide 25 mmol/L (20-31); Chloride 107 mmol/L (98-107); Potassium 3.8 mmol/L (3.5-5.1); Sodium 140 mmol/L (136-145)
[2024-06-22 07:11] LABS: Calcium 10.4 mg/dL (8.7-10.4)
[2024-06-22 07:16] LABS: BUN/Creatinine Ratio 9.1 (10.0-20.0); Blood Urea Nitrogen 11 mg/dL (9-23); Glucose 116 mg/dL (74-106)
[2024-06-22 09:00] VITALS: BP 153/91; PULSE 82; RESP 18; TEMP 98.4; O2SAT 95
[2024-06-22] MEDS: CHOLECALCIFEROL (VITD3) 1,000UNIT=25mCg TAB PO SCH (09:22)
[2024-06-22] MEDS: LISINOPRIL 20 MG TAB PO SCH (09:22)
[2024-06-22] MEDS: THIAMINE HCL 100 MG TAB PO SCH (09:23)
[2024-06-22] MEDS: amLODIPine BESYLATE 5 MG TAB PO SCH (09:24)
[2024-06-22] MEDS: chlordiazePOXIDE HCL 25 MG CAP PO SCH (09:25)
[2024-06-22 13:00] VITALS: BP 116/76; PULSE 68; RESP 16; TEMP 98.2; O2SAT 94
[2024-06-22 17:00] VITALS: BP 119/71; PULSE 102; RESP 18; TEMP 98.2; O2SAT 94
[2024-06-22] MEDS ORDERED: GABA-1251 PO (17:27)
[2024-06-22] MEDS ORDERED: PANT40TA57 PO (17:27)
--- NOTE | 2024-06-22 17:29 | DVHDS2 ---
Discharge Summary Date of Admission Jun 21, 2024 at 00:30 Date of Discharge: Jun 22, 2024 Labs/Diagnostic Data: Laboratory Results Test 06/22/24 05:58 06/21/24 12:05 06/20/24 14:08 White Blood Count 5.4 10^3/uL (4.4-10.8) Red Blood Count 4.65 10^6/uL (4.5-5.90) Hemoglobin 14.9 g/dL (13.5-17.5) Hematocrit 44.4 % (41.0-53.0) Mean Corpuscular Volume 95.5 fL (80.0-100.0) Mean Corpuscular Hemoglobin 32.1 pg (28.0-32.0) Mean Corpuscular Hemoglobin Concent 33.6 g/dL (32.0-36.0) Red Cell Distribution Width 14.0 % (11.8-14.3) Platelet Count 135 10^3/uL (140-450) Mean Platelet Volume 8.0 fL (6.9-10.8) Neutrophils (%) (Auto) 52.6 % (37.0-80.0) Lymphocytes (%) (Auto) 38.6 % (10.0-50.0) Monocytes (%) (Auto) 6.0 % (0.0-12.0) Eosinophils (%) (Auto) 2.1 % (0.0-7.0) Basophils (%) (Auto) 0.7 % (0.0-2.0) Neutrophils # (Auto) 2.8 10 ^3/uL (1.6-8.6) Lymphocytes # (Auto) 2.1 10 ^3/uL (0.4-5.4) Monocytes # (Auto) 0.3 10 ^3/uL (0-1.3) Eosinophils # (Auto) 0.1 10 ^3/uL (0-0.8) Basophils # (Auto) 0 10 ^3/uL (0-0.2) Nucleated Red Blood Cells 0.2 % Sodium Level 140 mmol/L (136-145) Potassium Level 3.8 mmol/L (3.5-5.1) Chloride Level 107 mmol/L (98-107) Carbon Dioxide Level 25 mmol/L (20-31) Anion Gap 8 (5-15) Blood Urea Nitrogen 11 mg/dL (9-23) Creatinine 1.21 mg/dL (0.700-1.30) Glomerular Filtration Rate Calc 65 mL/min (>90) BUN/Creatinine Ratio 9.1 (10.0-20.0) Serum Glucose 116 mg/dL (74-106) Calcium Level 10.4 mg/dL (8.7-10.4) POC Glucose 127 mg/dl (70-106) Total Bilirubin 0.6 mg/dL (0.2-1.0) Aspartate Amino Transferase (AST) 32 U/L (13-40) Alanine Aminotransferase (ALT) 24 U/L (7-40) Alkaline Phosphatase 44 U/L (46-116) Total Protein 7.8 g/dL (5.7-8.2) Albumin 5.1 g/dL (3.2-4.8) Lipase 71 U/L (12-53) Plasma/Serum Blood Alcohol 172.6 mg/dL (<10) Other Laboratory Tests 06/22/24 05:58 Brief Hx & Hospital Course: 69-year-old male with past medical history of alcohol abuse, hypertension presents with complaints of generalized weakness. Patient with broaden by his With complaints of alcohol abuse.Patient's last drink was June 20, 2024 Around 7 AM.Patient endorses drinking Tequila on a daily basis. Patient also noted to have uncontrolled hypertension. There are no complaints of fevers, chills, Chest pain, dizziness, Shortness of breath. He is admitted and underwent counseling and education regarding alcohol cessation and advised to seek help with volunteer AA meetings and drug rehab programs. This is also discussed with the patient's who is at bedside along with the nurse at bedside. While in the hospital patient treated with the gabapentin and IV fluids for his possible alcohol withdrawals. Patient is feeling better and back to baseline normal status. Therefore he is being discharged home in stable condition. He is advised to continue the medications per his discharge med rec list and have follow up with the PCP. Patient/ at bedside verbalized understanding of his hospital diagnosis, treatment he received, discharge medications, discharge instructions and agreed with follow- up plan of care. Condition at Discharge: Stable Final Diagnosis/Problems List Alcohol use disorder, alcohol withdrawal Discharge Disposition: Home Discharge Instruct/Medications Diet: Consistent carbohydrate, Cardiac 2g Na,low cholest Activity: No Restrictions, As Tolerated Follow Up/Referral: Primary care physician and AA meetings as well as referral to outpatient alcohol drug rehab programs Medications: As prescribed and home medications per discharge med list New Medications: Gabapentin (Gabapentin) 400 Mg Cap 400 MG PO TID, #20 CAP Pantoprazole Sodium Sesquihydr (Pantoprazole Sodium Dr) 40 Mg Tab 40 MG PO DAILY, #30 TAB Continued Medications: Alprazolam (Xanax) 0.5 Mg Tb 1 TAB PO DAILY PRN for ANXIETY, #30 TAB Amlodipine Besylate (Norvasc Tablet) 5 Mg Tb 10 MG PO DAILY, #30 TAB Cholecalciferol (Vitamin D3) 2,000 Unit Tab 1 TAB PO DAILY, #30 TAB 5 Refills Hydralazine HCl (Hydralazine HCl) 25 Mg Tab 50 MG PO Q8H, #180 TAB Lisinopril (Lisinopril) 40 Mg Tab 1 TAB PO DAILY Metoprolol Tartrate (Lopressor Tablet) 50 Mg Tb 1 TAB PO BID Ondansetron Odt 4MG Tab (Zofran Po) 4 Mg Tb 4 MG PO Q8HP PRN for 5 Days, #15 TAB ODT TAB-DISSOLVE IN MOUTH, THEN SWALLOW Tamsulosin Hcl (Tamsulosin Hcl) 0.4 Mg Cap 0.4 MG PO QPM for 30 Days, MG Discontinued Medications: Chlordiazepoxide Hcl (Ni-1) (I (Librium) 10 Mg Cap 10 MG PO BID for 5 Days, #10 CAP Discharge Statement: "Patient was advised to return to the ER or call 911 if any headaches, dizziness, shortness of breath, chest pain, abdominal pain, bleeding, fevers, or worsening of medical condition. Patient was counseled about treatment plan, medications, possible side effects, patientverbalized understanding. All questions were answered to the best of my ability. This discharge took greater then 30 minutes in planning, reviewing documentation, counseling the patient, and discussing with other team members." ASSESSMENT ASSESSMENT Assessment Alcohol use disorder, alcohol withdrawal DONNA FERRARI MD Jun 22, 2024 17:29
[2024-06-22 18:34] VITALS: BP 119/71; PULSE 102; RESP 18; TEMP 98.2; O2SAT 94
[2024-06-22] MEDS: PNEUMOCOCCAL VACC POLYS 25 MCG/0.5 ML VIAL IM ONE (19:22)
[2024-06-23] MEDS ORDERED: chlordiazePOXIDE HCL 25 MG CAP PO SCH (10:00)
[2024-06-24] MEDS ORDERED: chlordiazePOXIDE HCL 25 MG CAP PO SCH (07:00)
== END 2024-06-22 19:13 | disposition home or self-care (01) | DRG 896 ==
LOC: ER 13:50 → TELE 06-21 00:30 → TELE-WESTW 06-21 03:58
PROVIDERS: ADMIT Nurse Practitioner Family; ATTEND Nurse Practitioner Family
DX: F10.139 Alcohol abuse with withdrawal, unspecified (principal); G92.9 Unspecified toxic encephalopathy; I10 Essential (primary) hypertension; Z82.49 Family history of ischemic heart disease and other diseases of the circulatory system; Z79.899 Other long term (current) drug therapy; Y90.6 Blood alcohol level of 120-199 mg/100 ml
CPT/HCPCS: 36415; 74176; 80048; 80053; 80320; 82962; 83690; 85025; 93005; 99291; G0378; J2470